=== PATIENT | female | born 1995 | race American Indian/Alaskan Native ===

== ENCOUNTER 2018-02-07 11:20 | Emergency (ER) | payer OTHER ==
--- NOTE | 2018-02-07 12:07 | Emergency Department Report ---
ED Shortness of Breath HPI - General Chief Complaint: Chest Pain Stated Complaint: CHEST PAIN Time Seen by Provider: 02/07/18 11:50 Source: patient Mode of arrival: Ambulatory Limitations: No Limitations - History of Present Illness Initial Comments: This A0 18 week 22-year-old female presents with three-day history of shortness of breath and left anterior chest discomfort. She did not have any injury, no fever or chills or diaphoresis, no cough, and no abdominal or symptoms. She contacted her hospital nurse liaison, recommended to come in for further evaluation. She's had no prior cardiopulmonary history, and no difficulties with her previous 2 years ago delivering normal healthy male child by normal spontaneous vaginal delivery. She takes no routine medications other than vitamins. examinations have been normal and without complication. At time of examination she complains of shortness of breath, has only mild left chest discomfort, perhaps a little bit worse with movement or deep breathing. - Related Data Home Medications Medication Instructions Recorded Confirmed Last Taken Multivit/Iron/FA/K/Herb No.244 1 each PO DAILY 02/07/18 02/07/18 Unknown [Alive [employer] Mv Tablet] Allergies Allergy/AdvReac Type Severity Reaction Status Date / Time No Known Allergies Allergy Unverified 02/07/18 11:30 ED Review of Systems ROS: Stated complaint: CHEST PAIN Other details as noted in HPI Comment: All other systems reviewed and negative Constitutional: denies: chills, fever ENT: denies: ear pain, throat pain Respiratory: shortness of breath, SOB at rest Cardiovascular: chest pain (left anterior chest, mild, 2-3 out of 10). denies: edema, syncope Endocrine: no symptoms reported Gastrointestinal: denies: abdominal pain, nausea, diarrhea Genitourinary: other (, 18 weeks). denies: urgency, dysuria, discharge Musculoskeletal: denies: back pain, joint swelling, arthralgia Skin: denies: rash, lesions Neurological: denies: headache, weakness, paresthesias Psychiatric: denies: anxiety, depression Hematological/Lymphatic: denies: easy bleeding, easy bruising ED Past Medical Hx - Past Medical History Previous Medical History?: No - Surgical History Past Surgical History?: No - Social History Smoking Status: Never Smoker Substance Use Type: None - Medications Home Medications: Home Medications Medication Instructions Recorded Confirmed Last Taken Type Multivit/Iron/FA/K/Herb No.244 1 each PO DAILY 02/07/18 02/07/18 Unknown History [Alive [employer] Mv Tablet] ED Physical Exam - General Limitations: No Limitations General appearance: alert, in no apparent distress, other (tachycardic at intake , 115 bpm, 95 bpm at time of examination, 100% oxygen saturation) - Head Head exam: Present: atraumatic, normocephalic - Eye Eye exam: Present: PERRL - ENT ENT exam: Present: normal exam - Neck Neck exam: Present: normal inspection. Absent: tenderness - Respiratory Respiratory exam: Present: normal lung sounds bilaterally, chest wall tenderness (minimal discomfort to left chest wall palpation anteriorly, no bony defect). Absent: wheezes, rales, rhonchi, accessory muscle use - Cardiovascular Cardiovascular Exam: Present: regular rate, normal rhythm. Absent: systolic murmur, diastolic murmur - GI/Abdominal GI/Abdominal exam: Present: soft (gravid), distended (gravid), normal bowel sounds, other (focused [id number] ultrasound transabdominal scan shows healthy baby, spontaneous movements, normal heart tones, no free fluid, no hemorrhage in placenta). Absent: tenderness, guarding, rebound - Rectal Rectal exam: Present: deferred ED Course Vital Signs 02/07/18 02/07/18 11:30 15:31 Temperature 36.9 C Pulse Rate 115 H 83 Respiratory 18 16 Rate Blood Pressure 116/72 Blood Pressure 115/87 [Left] O2 Sat by Pulse 100 97 Oximetry ED Medical Decision Making - Lab Data Result diagrams: 02/07/18 11:51 02/07/18 11:51 - EKG Data -: EKG Interpreted by Me (normal EKG, sinus rhythm 87 bpm, normal QT interval 414 ms corrected.) EKG shows normal: sinus rhythm, axis (QRS axis 55), intervals (normal intervals , QT interval 414 ms corrected), QRS complexes (normal QRS complexes, no ectopy) , ST-T waves (normal, no elevations of ST segments or T waves.) - EKG Data When compared to previous EKG there are: previous EKG unavailable - Radiology Data Radiology results: report reviewed (CXR normal) perfusion scan performed, evaluated by Dr. Taylor, reads as completely normal, adequately excludes pulmonary embolism. - Medical Decision Making 18 week patient has had shortness of breath, 3 days, primarily with excessive talking or exertion, but exam here today is normal, and perfusion scan only performed due to , but entirely normal, and radiologist feels this is sufficient to exclude pulmonary embolism. Also, doppler venous ultrasound of both lower extremities were performed and also negative as well. 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 We've further investigated by the patient had been significantly exertional, or excessively sedentary, and neither of these seem to be the case, and she has not had any prior similar symptoms during her previous . Patient will be discharged to rest, routine care and observation, and consultation was made with her nurse midwives, Radha, who is coffee plantation worker for original nurse knitting machine operator [employer], Tash Randall, and will make arrangements to see patient on an expedited basis at the beginning of the week, in 3 days, with follow-up as necessary with supervising hospital nurse liaison, Dr. Giang. The patient has any worsening of symptoms in the meantime, to return to emergency department for further care. - Differential Diagnosis pulmonary embolus, pneumonia, bronchitis, chest wall strain Critical care attestation.: If time is entered above; I have spent that time in minutes in the direct care of this critically ill patient, excluding procedure time. ED Disposition Clinical Impression: Shortness of breath with , Disposition: DC-01 TO HOME OR SELFCARE Is pt being admited?: No Does the pt Need Aspirin: No Condition: Stable Instructions: Dyspnea (ED) Additional Instructions: Examination today is stable, and yet had negative ultrasound examination of lower extremities, which show no signs of any blood clots, and you had a perfusion scan of your lungs, was also show no signs of blood clots in the lungs. Chest x-ray is also normal, and remainder of her blood work is normal as well. The cause of his shortness of breath is not clear, but may simply be a result of pressure from the itself, but you're stable for discharge home, recommend rest, and see how your symptoms progress or resolve. We have contacted her nurse knitting machine operator automatic, they recommend a repeat follow-up in 3 days at the beginning of next week. Contact the office on Saturday to make arrangements to be seen on an expedited basis, lip numbness that he had examination in the emergency department, and that we have discussed your findings with the nurse knitting machine operator automatic. Return to the emergency department at any time if you feel much worse. Referrals: PRIMARY CARE, [Primary Care Provider] - 3-5 Days Time of Disposition: 16:30
[2018-02-07 12:23] LABS: Hematocrit 35.5 % (30.3-42.9); Hemoglobin 11.7 gm/dl (10.1-14.3); Mean Corpuscular HGB Conc 33 % (30-34); Mean Corpuscular Hemoglobin 29 pg (28-32); Mean Corpuscular Volume 87 fl (79-97); Platelet Count 301 K/mm3 (140-440); Red Blood Count 4.09 M/mm3 (3.65-5.03); Red Cell Distribution Width 13.1 % (13.2-15.2)
[2018-02-07 13:06] LABS: Alanine Aminotransferase 8 units/L (7-56); Albumin 3.6 g/dL (3.9-5); BUN/Creatinine Ratio 10; Blood Urea Nitrogen 5 mg/dL (7-17); Calcium 8.8 mg/dL (8.4-10.2); Hemolysis Index 7
[2018-02-07 13:13] LABS: Bacteria,Urine 1+ /HPF (Negative); Bilirubin,Urine NEG (Negative); Blood,Urine NEG (Negative); Color,Urine Yellow (Yellow); Mucus,Urine 3+ /HPF; Protein,Urine <15 mg/dL mg/dL (Negative)
--- NOTE | 2018-02-07 15:02 | XRay Report ---
ROUTINE CHEST, TWO VIEWS: Dyspnea, elevated d-dimer. Patient is and the abdomen is shielded. PA and lateral views demonstrate the heart and mediastinal contour to be of normal size and shape. The lungs are clear and fully expanded and the soft tissues and bony structures are normal. IMPRESSION: Normal study.
--- NOTE | 2018-02-07 15:14 | Nuclear Medicine Report ---
PERFUSION LUNG SCAN: SOB, elevated d-dimer. The patient is 18 weeks . After injection of Technetium 99m macroaggregated albumin gamma camera imaging of the lungs in multiple projections demonstrates normal pulmonary contours with a homogeneous distribution of activity. No focal areas of perfusion deficiency are identified. IMPRESSION: Normal study.
[2018-02-07 15:32] VITALS: BP 115/87
--- NOTE | 2018-02-11 13:05 | Vascular Lab Report ---
LOWER EXTREMITY VENOUS DUPLEX: REASON FOR EXAM: Short of breath. COMMENTS ON THE RIGHT: All veins visualized are freely compressible without evidence of internal echogenicity. Flow is spontaneous and phasic throughout. COMMENTS ON THE LEFT: All veins visualized are freely compressible without evidence of internal echogenicity. Flow is spontaneous and phasic throughout. IMPRESSION: No evidence of acute or chronic deep venous thrombosis in either lower extremity.
== END 2018-02-07 16:39 | disposition home or self-care (01) ==
LOC: ED 11:20
DX: O26.892 Other specified pregnancy related conditions, second trimester (principal); Z3A.18 18 weeks gestation of pregnancy
CPT/HCPCS: 36415; 71046; 78580; 80053; 81001; 84484; 84702; 85027; 85379; 93005; 93010; 93970; 99284; A9540

== ENCOUNTER 2018-06-12 18:58 | Outpatient (CLI) | payer OTHER ==
[2018-06-12 19:51] VITALS: BP 119/65
[2018-06-12] MEDS ORDERED: LACTATED RINGERS 1,000 ML IV ONE (19:55)
[2018-06-12 20:36] LABS: Bilirubin,Urine NEG (Negative); Blood,Urine NEG (Negative); Color,Urine Yellow (Yellow); Mucus,Urine FEW /HPF; Protein,Urine <15 mg/dL mg/dL (Negative); Urobilinogen,Urine < 2.0 mg/dL (<2.0)
== END 2018-06-12 20:50 | disposition home or self-care (01) ==
LOC: TRG 18:58
PROVIDERS: ATTEND Obstetrics & Gynecology Gynecology
DX: O26.893 Other specified pregnancy related conditions, third trimester (principal); R10.30 Lower abdominal pain, unspecified; Z3A.37 37 weeks gestation of pregnancy
CPT/HCPCS: 59025; 81001